=== PATIENT | female | born 1990 | race Caucasian/White ===

== ENCOUNTER 2017-06-02 01:56 | Emergency (ER) | payer SELFPAY ==
[~2017-06-02] VITALS: Ht 167.6 cm; Wt 56.7 kg
[2017-06-02 01:56] VITALS: BP 153/78
--- NOTE | 2017-06-02 03:18 | NUR ---
CALLED; NO ANSWER AND NOT IN LOBBY
--- NOTE | 2017-06-02 03:42 | NUR ---
NOT IN LOBBY.
--- NOTE | 2017-06-02 03:49 | NUR ---
STILL NOT IN LOBBY
--- NOTE | 2017-06-02 04:11 | NUR ---
CHECKED THE LOBBY QAND PT STILL NOT THERE
--- NOTE | 2017-06-02 04:38 | NUR ---
CALLED AGAIN; NOT IN LOBBY
--- NOTE | 2017-06-02 04:52 | NUR ---
NOT IN THE LOBBY AGAIN; BRIELLE.
== END 2017-06-02 04:52 | disposition left against medical advice (07) ==
LOC: ER 01:58
DX: F41.9 Anxiety disorder, unspecified (principal)
CPT/HCPCS: 99283; A4606; Z7610